=== PATIENT | male | born 1945 | race Caucasian/White ===

== ENCOUNTER → 2016-10-18 | Day surgery (SDC) | payer OTHER ==
[~2016-10-18] MED LIST: ASPIRIN EC 325 MG TAB PO ONE; DIAZEPAM 5 MG TAB ONE; DIAZEPAM 5 MG TAB PO ONE; FAMOTIDINE 20 MG TAB ONE; FAMOTIDINE 20 MG TAB PO ONE; IOPAMIDOL (ISOVUE-370) 150 ML BTL IV ONE; LIDOCAINE 1% 30 ML SDV ONE; MIDAZOLAM 2 MG/2 ML VIAL ONE; NITROGLYCERIN 1,500 MCG/15 ML VIAL MISC ONE; NS 1,000 ML IV ONE; diphenhydrAMINE 25 MG CAP PO ONE; fentaNYL 100 MCG/2 ML INJ ONE
--- NOTE | 2016-10-18 07:56 | CPEKG ---
Heart Rate: 86 RR Interval: 698 P-R Interval: 160 QRSD Interval: 82 QT Interval: 372 QTC Interval: 445 P [place]: 62 QRS [place]: 41 T Wave [place]: 42 EKG Severity - BORDERLINE ECG - EKG Impression: SINUS RHYTHM EKG Impression: PROBABLE LEFT ATRIAL ABNORMALITY EKG Impression: non-specific ST depression laterally. Electronically Signed By: Titi Crisostomo 18-Oct-2016 16:57:09
[2016-10-18 08:30] LABS: % IMMATURE GRANULYOCYTES 0.2 % (0.0-1.1); ABSOLUTE IMMATURE GRANULOCYTES 0.01 10^3/uL (0.00-0.10); ADD DIFF? NO; ADD MORPH? NO; ADD SCAN? NO; ATYPICAL LYMPHOCYTE FLAG 0 (0-99); FRAGMENT RBC FLAG 20 (0-99); HEMOGLOBIN 15.1 g/dL (13.7-17.5); LEFT SHIFT FLG 0 (0-99); LIPEMIA HEMOLYSIS FLAG 90 (0-99); MEAN CELL HEMOGLOBIN 33.6 pg (27.9-34.1); MEAN CELL HEMOGLOBIN CONCENTR. 34.3 g/dL (32.4-36.7); MEAN PLATELET VOLUME 9.7 fL (8.7-11.7); PLATELET CLUMPS FLAG 20 (0-99); PLATELET COUNT 297 10^3/uL (150-400); RED BLOOD CELL COUNT 4.49 10^6/uL (4.40-6.38); RED CELL DISTRIBUTION WIDTH 13.8 % (11.5-15.2)
[2016-10-18 08:41] LABS: ANION GAP 12 mEq/L (8-16); CALCIUM 9.1 mg/dL (8.5-10.4); CARBON DIOXIDE 25 mEq/l (22-31); CHLORIDE 109 mEq/L (97-110); CHOLESTEROL 186 mg/dL (140-220); CHOLESTEROL/HDL RATIO 2.91 RATIO (1.00-4.97); CREATININE 1.2 mg/dL (0.7-1.3); GLOMERULAR FILTRATION RATE 59; GLUCOSE 139 mg/dL (70-100); HIGH DENSITY LIPOPROTEIN 64 mg/dL (40-65); LDL/HDL RATIO 1.41 RATIO (1.00-3.64); LOW DENSITY LIPOPROTEIN 90 mg/dL (80-100); MAGNESIUM 2.2 mg/dL (1.6-2.3); NON-HIGH DENSITY LIPOPROTEIN 122 mg/dL (90-129); POTASSIUM 4.1 mEq/L (3.5-5.2); SODIUM 146 mEq/L (134-144); TRIGLYCERIDE 161 mg/dL (40-150); VERY LOW DENSITY LIPOPROTEINS 32 mg/dL (8-25)
[2016-10-18 08:43] LABS: INR 0.98 (0.83-1.16); PROTIME(PATIENT) 12.9 SEC (12.0-15.0)
--- NOTE | 2016-10-18 14:21 | CPIP ---
[f rep st] INVASIVE CARDIAC PROCEDURE PROCEDURE: Coronary angiography. DIAGNOSIS: Aortic stenosis. INDICATION: The patient is considering having and scheduled to have surgery for his aortic valve rep lacement next Saturday. At this time, he is undergoing elective coronary angiography to rule out the need for coronary artery bypass grafting at the time of surgery. He gave informed consent. He understood the risks and the options and wanted to proceed at this time . His echocardiographic study from September 07, 2016 shows impaired relaxation pattern, severe aortic sc lerosis, mild mitral annular calcification, mild aortic regurgitation, severe aortic stenosis, mild m itral regurgitation, and mild tricuspid regurgitation. Pulmonary artery pressure is estimated at 37. His peak aortic velocity was 4.31 m/sec. The peak aortic gradient was 74. The mean gradient was 38. His echocardiographic study prior to this on 12/13/2015 showed impaired relaxation, normal LV systoli c function once again, and severe aortic sclerosis, severe aortic stenosis, and mild tricuspid regurg itation. The peak gradient then was 71 and mean gradient was 38. Valve area 0.9. DESCRIPTION OF PROCEDURE: The access was gained through the right femoral artery without any complic ations. Coronary angiography followed. ANGIOGRAPHY: RIGHT CORONARY ARTERY: The right coronary artery has no significant disease. The right coronary artery is non dominant. LEFT CORONARY ARTERY: The left main coronary artery is normal. The LAD has what we have estimated to be a 25% to 30% ostia l stenosis. It is very smooth. The circumflex itself has intimal disease as does the obtuse margina l branch. The left circumflex is dominant. The patient's LAD after the ostium has only intimal disease present. There were no attempts made to cross the aortic valve. CONCLUSION: The films were reviewed with the interventional service and we discussed the possibility of doing an IVUS to see if that was a significant stenosis in the proximal LAD with several noninvas lawson cardiologists and the invasive cardiologists we decided that the patient did not need IVUS and th at he could proceed to aortic valve replacement without bypassing that vessel. COMPLICATIONS: None. I have discussed results with his and with the patient. All her questions have been answered. I have also discussed with her that the surgeon may at the time of surgery decide upon actually seein g the vessel and palpating it, etc., that he may want a bypass that the territory of the left anterio r descending artery, and she is aware of that. She is going to be talking as is he to the surgeon on Saturday. /[id number]/MODL
--- NOTE | 2016-10-18 16:37 | US ---
Bilateral Duplex/Doppler Carotid Sonography Clinical Indications: Preoperative evaluation prior to open heart surgery; evaluate for arterial occl usive disease. The patient has had bilateral endarterectomy, on the right in 2005 and the left in 2016. Technique: The cervical portions of the carotid and vertebral arteries were imaged and interrogated b y color and pulsed Doppler. Spectral analysis was performed. Comparison to the previous examination November 25, 2013. Findings: Right Carotid: The common carotid artery, bifurcation, and origins of the internal and external carot id arteries are well imaged. No plaque formation is seen at the level of the carotid bifurcation. Peak ICA systolic velocity; 65 cm/sec. The internal to common carotid artery ratio is calculated at 1.1. Peak ICA diastolic velocity; 18 cm/sec. There is no evidence of flow-limiting stenosis. Left Carotid: The common carotid artery, bifurcation, and origins of the internal and external carot id arteries are well imaged. No plaque formation is seen at the level of the carotid bifurcation. Peak ICA systolic velocity; 74 cm/sec. The internal to common carotid artery ratio is calculated at 1.0. Peak ICA diastolic velocity; 24 cm/sec. There is no evidence of flow-limiting stenosis. Vertebral Arteries: Antegrade flow is shown by pulsed Duplex/Doppler of each vertebral artery. Impression: Status post bilateral endarterectomy with no significant plaque formation or hemodynamica lly significant stenosis. Measurement of carotid stenosis is based on velocity parameters that correlate the residual internal carotid diameter with [place] Symptomatic Carotid Endarterectomy Trial (NASCET) based stenosis levels.
== END | disposition home or self-care (01) ==
LOC: FCATH 07:32
PROVIDERS: ATTEND Internal Medicine
PROC: 4A023N7 Measurement of Cardiac Sampling and Pressure, Left Heart, Percutaneous Approach (ICD-10-PCS; principal; 2016-10-18)
PROC: B2111ZZ Fluoroscopy of Multiple Coronary Arteries using Low Osmolar Contrast (ICD-10-PCS; principal; 2016-10-18)
DX: I35.0 Nonrheumatic aortic (valve) stenosis (principal); E78.5 Hyperlipidemia, unspecified
CPT/HCPCS: J1644; J2250; J3010; Q9967

== ENCOUNTER 2016-10-24 07:14 | Inpatient (IN) | payer OTHER ==
[~2016-10-24 07:14] MED LIST changes: +ADENOSINE 6 MG/2 ML VIAL ONE; +ALBUMIN 5% 250 ML BOTTLE IV ONE; +AMINOCAPROIC ACID 5 GM/20 ML VIAL IV ONE; +AMINOCAPROIC ACID 5 GM/20 ML VIAL ONE; +AMIODARONE HCL 150 MG/3 ML VIAL ONE; -ASPIRIN EC 325 MG TAB PO ONE; +CALCIUM CHLORIDE 1 GM/10 ML INJ ONE; +CITRATE DEXTROSE SOLN 500 ML BAG MISC ONE; -DIAZEPAM 5 MG TAB ONE; -DIAZEPAM 5 MG TAB PO ONE; +DOPamine/DEXTROSE/250 ML BAG IV ONE; -FAMOTIDINE 20 MG TAB ONE; -FAMOTIDINE 20 MG TAB PO ONE; +HEPARIN 10,000 UNIT/10 ML MDV ONE; +INSULIN REGULAR HUMAN 100 UNIT in NS 100 ML IV ONE; -IOPAMIDOL (ISOVUE-370) 150 ML BTL IV ONE; -LIDOCAINE 1% 30 ML SDV ONE; +LIDOCAINE 1% 5 ML SDV ID PRN; +LIDOCAINE 2% 100 MG/5 ML SYR IVP ONE; +MAGNESIUM SULFATE 1 GM/2 ML VIAL ONE; +MANNITOL 25% 12.5 GM/50 ML VIAL IV ONE; -MIDAZOLAM 2 MG/2 ML VIAL ONE; +MILRINONE/DEXTROSE/100 ML BAG IV ONE; +MUPIROCIN 2% 22 GM OINT NS ONE; +NA BICARBONATE 50 MEQ/50 ML VIAL ONE; -NITROGLYCERIN 1,500 MCG/15 ML VIAL MISC ONE; +NOREPINEPHRINE BITARTRATE 16 MG in NS 250 ML IV ONE; +PHENYLEPHRINE HCL 50 MG in NS 250 ML IV ONE; +POTASSIUM Cl (KCl) 20 MEQ/50 ML BAG IV ONE; +PROTAMINE SULFATE 50 MG/5 ML VIAL IVP ONE; +SODIUM BICARBONATE 20 MEQ, LIDOCAINE 1% 10 ML in NORMOSOL-R 1,000 ML MISC ONE; +ceFAZolin 1 GM VIAL ONE; +ceFAZolin 2 GM/DEXTROSE 100 ML IV ONE; -diphenhydrAMINE 25 MG CAP PO ONE; -fentaNYL 100 MCG/2 ML INJ ONE; +methylPREDNISolone SOD SUCC 1 GM/8 ML VIAL ONE; +niCARdipine/NACL 200 ML IV ONE; +niCARdipine/NACL/200 ML BAG IV ONE
[2016-10-24] MEDS ORDERED: SKIN ADHESIVE (DERMABOND) 1 EACH TP ONE (07:32)
[2016-10-24] MEDS ORDERED: PAPAVERINE HCL 60 MG/2 ML SDV ONE (07:33)
[2016-10-24] MEDS ORDERED: VERAPAMIL 5 MG/2 ML VIAL ONE (07:33)
[2016-10-24] MEDS ORDERED: CITRATE DEXTROSE SOLN 500 ML BAG ONE (08:02)
[2016-10-24] MEDS ORDERED: REMIFENTANIL HCL 1 MG VIAL ONE (08:17)
[2016-10-24] MEDS ORDERED: fentaNYL 250 MCG/5 ML INJ ONE (08:17)
[2016-10-24] MEDS ORDERED: morphINE *ANESTHESIA ONLY* 10 MG/ML VIAL ONE (08:17)
[2016-10-24] MEDS ORDERED: PROPOFOL/EMULSION 500 MG/50 ML BOTTLE IV ONE (08:18)
[2016-10-24] MEDS ORDERED: PROPOFOL 200 MG/20 ML VIAL ONE (08:18)
[2016-10-24] MEDS ORDERED: MIDAZOLAM 2 MG/2 ML VIAL ONE (08:19)
[2016-10-24] MEDS ORDERED: ROCURONIUM 100 MG/10 ML VIAL ONE (08:21)
[2016-10-24] MEDS ORDERED: DEXMEDETOMIDINE HCL 400 MCG in NS 100 ML IV SCH (08:30)
[2016-10-24] MEDS ORDERED: LIDOCAINE 2% 100 MG/5 ML SYR IVP ONE (08:31)
[2016-10-24] MEDS ORDERED: INSULIN REGULAR HUMAN 100 UNIT in NS 100 ML IV SCH (12:00)
[2016-10-24] MEDS ORDERED: MAGNESIUM SULF 2 GM/WATER 50 ML BAG IV ONE (12:00)
[2016-10-24] MEDS ORDERED: ALBUMIN 5% 250 ML BOTTLE IV ONE (12:01)
[2016-10-24] MEDS ORDERED: SUGAMMADEX SODIUM 200 MG/2 ML VIAL IVP ONE (12:19)
[2016-10-24] MEDS ORDERED: D50W 25 GM/50 ML SYR IVP PRN (12:30)
[2016-10-24] MEDS ORDERED: METOCLOPRAMIDE 10 MG/2 ML VIAL IVP PRN (12:30)
[2016-10-24] MEDS ORDERED: CEPACOL LOZENGE PO PRN (12:30)
[2016-10-24] MEDS ORDERED: POLYETHYLENE GLYCOL 3350 17 GM PKT PO PRN (12:30)
[2016-10-24] MEDS ORDERED: LACTULOSE 20 GM/30 ML UDCUP PO PRN (12:30)
[2016-10-24] MEDS ORDERED: MAGNESIUM HYDROXIDE 30 ML UDCUP PO PRN (12:30)
[2016-10-24] MEDS ORDERED: MAGNESIUM SULF 2 GM/WATER 50 ML IV ONE (12:30)
[2016-10-24] MEDS ORDERED: POTASSIUM Cl (KCl) 50 ML IV PRN (12:30)
[2016-10-24] MEDS ORDERED: ONDANSETRON 4 MG/2 ML VIAL IVP PRN (12:30)
[2016-10-24] MEDS ORDERED: ONDANSETRON DISINTEGRATING 4 MG TAB PO PRN (12:30)
[2016-10-24] MEDS ORDERED: SODIUM CL NASAL 45 ML BTL EACHNARE PRN (12:30)
[2016-10-24] MEDS ORDERED: NS 1,000 ML IV SCH (12:30)
[2016-10-24] MEDS ORDERED: fentaNYL 100 MCG/2 ML INJ IVP PRN (12:30)
[2016-10-24] MEDS ORDERED: MEPERIDINE 25 MG/ML SYR IVP PRN (12:30)
[2016-10-24] MEDS ORDERED: ACETAMINOPHEN 325 MG TAB PO PRN (12:30)
[2016-10-24] MEDS ORDERED: BISACODYL 10 MG SUPP PR PRN (12:30)
[2016-10-24] MEDS ORDERED: ACETAMINOPHEN 650 MG SUPP PR PRN (12:30)
[2016-10-24] MEDS ORDERED: PANTOPRAZOLE SODIUM 40 MG in NS 100 ML IV ONE (12:30)
--- NOTE | 2016-10-24 13:13 | POSTOPPROG ---
Post Op Note Date of Operation: 10/24/16 Surgeon: Roberto Conteh Scratch Finisher: Alexander Anesthesia: GET(General Endotracheal) Pre-op Diagnosis: , ASHD Procedure: AVR #21 Magna, LIMA_LAD, Atriclip JOHNATHAN Inf/Abcess present in the surg proc area at time of surgery?: No EBL: 50-100 Drains: Other (3 blakes)
[2016-10-24 13:32] LABS: BASE EXCESS -5.1 mEq/L (-2.5-2.5); BICARBONATE 19 mEq/L (22-26); MEASURED OXYGEN SATURATION 98 % (92-95); PCO2 33 mmHg (34-38); PO2 108 mmHg (65-75); TCO2 21 mEq/L (23-27)
[2016-10-24 13:33] LABS: BIPAP YES; EXP PRESSURE 8; INSP PRESSURE 14; O2 CONCENTRATIION 60 % (0-100); P/F RATIO 180 RATIO
[2016-10-24] MEDS: ALBUMIN 5% 250 ML IV PRN (13:36)
--- NOTE | 2016-10-24 13:38 | DX ---
Portable semiupright AP chest October 24, 2016, 1320 hours HISTORY: Open heart surgery. FINDINGS: Right jugular central catheter terminates in the superior vena cava. Sternotomy wires, pros thetic aortic valve, and left atrial appendage clip are present. Multiple surgical clips on the left side suggest coronary artery bypass as well. Three chest tubes are present. Inspiratory depth is poor , with patchy areas of atelectasis, bilaterally. No pneumothorax. IMPRESSION: 1. Patchy bilateral atelectasis. 2. Aortic valve replacement. 3. Clip of left atrial appendage. 4. Coronary artery bypass grafts.
--- NOTE | 2016-10-24 13:39 | CPEKG ---
Heart Rate: 73 RR Interval: 822 P-R Interval: 160 QRSD Interval: 82 QT Interval: 456 QTC Interval: 503 P [place]: 73 QRS [place]: 69 T Wave [place]: 28 EKG Severity - ABNORMAL ECG - EKG Impression: SINUS RHYTHM EKG Impression: PROLONGED QT INTERVAL Electronically Signed By: Jesus Rod 24-Oct-2016 14:17:28
[2016-10-24] MEDS ORDERED: KETOROLAC 30 MG/1 ML SDV IVP ONE (13:47)
[2016-10-24] MEDS ORDERED: fentaNYL 25 MCG PATCH TD ONE (13:48)
--- NOTE | 2016-10-24 14:08 | GCON ---
[f rep st] CONSULTATION INTENSIVE CONSULTATION HISTORY OF PRESENT ILLNESS: Patient examined postoperatively after receiving aortic valve replacemen t as well as a coronary bypass. The patient is a 71-year-old white male with an extensive past medic al history including aortic stenosis, hypertension, gout, chronic renal insufficiency that is mild, a nd non-insulin dependent diabetes. Again, he is examined postoperatively. The patient is currently sedated. He is off mechanical ventilation though is on BiPAP. All history is gleaned from the medic al record. His valvular problems have been followed for a number of years by [facility]. PAST MEDICAL HISTORY: Again, significant for anemia, aortic stenosis, carotid stenosis, hypertension , gout, hyperlipidemia, non-insulin dependent diabetes, chronic renal insufficiency. PAST SURGICAL HISTORY: Carotid endarterectomy, vasectomy, a melanoma excision. MEDICATIONS AT HOME: Include amlodipine, aspirin, hydrochlorothiazide, quinapril, simvastatin. ALLERGIES: To horse serum and tree nuts. SOCIAL HISTORY: Previous heavy smoker, none for 20 years. He drinks 3 alcoholic drinks per day. He is . Has good family support. PHYSICAL EXAM: VITAL SIGNS: Blood pressure 105/58, pulse 75, respiration 19, temp 35.1, oxygen satu ration is 100% on 60% and BiPAP. GENERAL: He is a mildly overweight, 71-year-old white male, who is resting comfortably. No acute distress. HEENT: Eyes are [place], EOMI. Throat shows no erythema or tonsillar hypertrophy. NECK: Supple. There is no cervical adenopathy. HEART: Regular rate and rh ythm with a 2/6 systolic murmur at the left sternal border without radiation. LUNGS: Diminished [place] ath sounds. Mild prolongation of expiratory phase but there is no wheeze. ABDOMEN: Soft, nontender . Bowel sounds present in all 4 quadrants. EXTREMITIES: No clubbing, cyanosis, or edema. LABORATORIES: Sodium 140, potassium 4.0, chloride 108, CO2 is 19, BUN 16, creatinine 0.9, glucose is 164. Hemoglobin 12.2, hematocrit 36. Arterial blood gas: pH 7.38, pCO2 33, pO2 108, bicarb 21, ox ygen saturation 98%. This is on BiPAP. IMPRESSION: 1. Status post aortic valve replacement and coronary bypass graft. 2. History of diabetes. 3. Chronic renal insufficiency. 4. History of gout. 5. History of hyperlipidemia. 6. Hypertension. RECOMMENDATIONS: 1. Adequate pain control. 2. Wean from BiPAP as tolerated. 3. DVT and PE prophylaxis. Holding anticoagulation for now. 4. Stress ulcer prophylaxis. 5. Aggressive blood sugar control. 6. Early ambulation. 7. PT/OT. 8. Adequate nutrition. /[id number]/MODL
[2016-10-24] MEDS: ceFAZolin 2 GM/DEXTROSE 100 ML IV SCH ×2 (14:21→22:20)
--- NOTE | 2016-10-24 14:33 | GOP ---
[f rep st] OPERATIVE REPORT DATE OF OPERATION: 10/24/2016 SURGEON: Roberto Conteh DO MANAGER MARKETING COMMUNICATION: Aaron Munoz PA-C ANESTHESIOLOGIST: Deni Lamas MD. PREOPERATIVE DIAGNOSIS: Aortic stenosis and arteriosclerotic heart disease. POSTOPERATIVE DIAGNOSIS: Aortic stenosis and arteriosclerotic heart disease. PROCEDURE PERFORMED: 1. Aortic valve replacement with a #21 Magna bioprosthesis. 2. Left internal mammary artery to left anterior descending. 3. Ligation of left atrial appendage with AtriClip. FINDINGS: DESCRIPTION OF PROCEDURE: The patient was consented for aortic valve and single-vessel bypass as wel l as ligation of left atrial appendage per our discussion preoperatively. He was brought to the oper ating room, intubated, monitoring lines were placed. He was prepped and draped in sterile classical manner. Time out was confirmed with anesthesia and the rest of the team. Transesophageal echo revea led severe aortic stenosis, good LV function with mild to moderate MR which was known preoperatively and considered more in the mild category with no history of symptoms from that. Sternotomy was perfo rmed. The mammary was harvested. It was a 2 mm vessel with brisk flow. Aorta was soft without plaq ue. He was heparinized, cannulated in the standard fashion. Cardiopulmonary bypass was begun. A Ca rdioplegic arrest was obtained with antegrade cardioplegia, retrograde cardioplegia, topical hypother abdifatah and systemic cooling. Initially, the left atrial appendage was ligated with a 35 mm AtriClip flu sh with the left atrial wall and no evidence of thrombus on echo. I then proceeded with grafting the LAD which was an excellent quality 3 mm vessel in the midsegment with the mammary. It was tacked to the epicardium. We then began rewarming while the aortotomy was performed and a calcified 3 leaflet aortic valve was excised, the annulus was debrided, the LV chamber was irrigated and CO2 was infused throughout. Interrupted 2-0 Tycron pledgeted mattress sutures were placed to a 21 mm Magna valve an d secured without difficulty. We then closed the aortotomy in a 2 layer fashion. The crossclamp wa s then removed with suction on the ascending aortic vent and LV vent. When no further air was seen i n Trendelenburg the LV sump was removed and we intermittently aspirated the LV apex until no further air was identified. The heparin was then reversed with protamine. The cannula was removed and overs ewn. Two ventricular pacing wires, 2 pleural and 1 mediastinal drain were placed. The thymic fat an d pericardium were closed. Chest was closed in the standard fashion. The patient was returned to [facility] post sternotomy, extubated in the operating room, in stable condition. /[id number]/MODL
[2016-10-24 16:46] LABS: BASE EXCESS -3.9 mEq/L (-2.5-2.5); BICARBONATE 20 mEq/L (22-26); MEASURED OXYGEN SATURATION 95 % (92-95); PCO2 32 mmHg (34-38); PO2 73 mmHg (65-75); TCO2 21 mEq/L (23-27)
[2016-10-24] MEDS ORDERED: DOPamine/DEXTROSE/250 ML BAG IV ONE (17:47)
[2016-10-24] MEDS: HYDROCODONE/APAP 5/325 TAB PO PRN ×2 (18:41→20:49)
[2016-10-24] MEDS: MUPIROCIN 2% 22 GM OINT NS SCH (21:36)
[2016-10-24 22:20] LABS: HEMATOCRIT 30.1 % (40.0-51.0); HEMOGLOBIN 10.1 g/dL (13.7-17.5); MEAN CELL HEMOGLOBIN CONCENTR. 33.6 g/dL (32.4-36.7); MEAN CELL VOLUME 101.3 fL (81.5-99.8); RED BLOOD CELL COUNT 2.97 10^6/uL (4.40-6.38); RED CELL DISTRIBUTION WIDTH 13.5 % (11.5-15.2)
[2016-10-25] MEDS: HYDROCODONE/APAP 5/325 TAB PO PRN ×3 (00:16→09:48)
[2016-10-25 04:16] LABS: % IMMATURE GRANULYOCYTES 0.2 % (0.0-1.1); ABSOLUTE IMMATURE GRANULOCYTES 0.02 10^3/uL (0.00-0.10); ADD DIFF? NO; ADD MORPH? NO; ADD SCAN? NO; ATYPICAL LYMPHOCYTE FLAG 0 (0-99); FRAGMENT RBC FLAG 0 (0-99); HEMATOCRIT 29.3 % (40.0-51.0); HEMOGLOBIN 9.8 g/dL (13.7-17.5); LEFT SHIFT FLG 80 (0-99); LIPEMIA HEMOLYSIS FLAG 80 (0-99); MEAN CELL HEMOGLOBIN 33.8 pg (27.9-34.1); MEAN CELL HEMOGLOBIN CONCENTR. 33.4 g/dL (32.4-36.7); MEAN PLATELET VOLUME 10.5 fL (8.7-11.7); PLATELET CLUMPS FLAG 0 (0-99); PLATELET COUNT 133 10^3/uL (150-400); RED CELL DISTRIBUTION WIDTH 13.9 % (11.5-15.2)
[2016-10-25 04:50] LABS: ANION GAP 9 mEq/L (8-16); CALCIUM 7.7 mg/dL (8.5-10.4); CARBON DIOXIDE 23 mEq/l (22-31); CHLORIDE 113 mEq/L (97-110); CREATININE 1.2 mg/dL (0.7-1.3); GLOMERULAR FILTRATION RATE 59; GLUCOSE 99 mg/dL (70-100); POTASSIUM 4.9 mEq/L (3.5-5.2); SODIUM 145 mEq/L (134-144)
[2016-10-25] MEDS ORDERED: HEPARIN 5,000 UNIT/0.5 ML SYR SC SCH (06:00)
[2016-10-25] MEDS: HEPARIN 5,000 UNIT/0.5 ML SYR SC SCH ×3 (06:14→22:50)
[2016-10-25] MEDS: ceFAZolin 2 GM/DEXTROSE 100 ML IV SCH ×3 (06:14→22:50)
[2016-10-25] MEDS: ALBUMIN 5% 250 ML IV PRN (07:20)
--- NOTE | 2016-10-25 08:08 | SOAPPROG ---
SOAP Progress Note Assessment/Plan: POD #1 CABGx1 (MENARD-LAD), AVR #21 Magna bioprosthesis, prophylactic ligation of JOHNATHAN with AtriClip CAD/ s/p CABGx1/AVR - weaned from CPB without need of blood products/pressors/ inotropes/pacing. Extubated prior to transfer to ICU and BiPAP used for transient somnolence. 2 mcg of dopamine started for bradycardia in 50s. - Dopamine off - if BP stable, plan to remove [place] and transfer to PCU - d/c FC and CTs to bulb suction - OOB/ambulation - BB when appropriate, ASA now, statin when taking adequate PO - Heparin SQ for DVT prophylaxis 10/25/16 08:13 Subjective: Denies SOB. Minimal chest pain right chest. Otherwise feels well. Objective: Vital Signs Temp Pulse Resp BP Pulse Ox 36.8 C 78 18 120/59 L 95 10/25/16 07:00 10/25/16 07:00 10/25/16 07:00 10/25/16 07:00 10/25/16 07:00 Laboratory Results 10/25/16 04:00 10/25/16 04:00 10/24/16 10/25/16 10/26/16 05:59 05:59 05:59 Intake Total 1510 Output Total 1600 Balance -90 Physical Exam - Physical Exam General Appearance: WD/WN, alert, no apparent distress EENT: No scleral icterus (R), No scleral icterus (L) Neck: normal inspection Respiratory: lungs clear, No respiratory distress, No crackles, No rhonchi, No wheezing Cardiac/Chest: regular rate, rhythm, other (Sternotomy C/D/I) Abdomen: non-tender, soft Skin: normal color, warm/dry Extremities: No pedal edema, No swelling Neuro/Psych: alert, normal mood/affect, oriented x 3 ICD10 Worksheet Patient Problems: Problems Problem Status Diagnosed S/P AVR (aortic valve replacement) Acute S/P CABG x 1 Acute Aortic valve stenosis with insufficiency Chronic CAD in [place] artery Chronic History of bilateral carotid endarterectomy Chronic PVD (pulmonary valve disease) Chronic
[2016-10-25] MEDS ORDERED: ASPIRIN 81 MG CHEWABLE TAB TUBE PRN (09:00)
[2016-10-25] MEDS: PANTOPRAZOLE SODIUM 40 MG TAB PO SCH (09:48)
[2016-10-25] MEDS: MUPIROCIN 2% 22 GM OINT NS SCH ×2 (09:48→22:52)
[2016-10-25] MEDS: ASPIRIN 81 MG CHEWABLE TAB PO SCH (09:48)
--- NOTE | 2016-10-25 09:49 | PDINTPN ---
Paper Control Clerk Progress Note Assessment/Plan: Assessment/Plan: * S/P AVR and CABG * Pain-okay * Resp-stable off vent * CRI-by history * DM-BS okay * Hypotension-off pressors * PT/OT * Ambulation Subjective: Comfortable. Pain okay Objective: Vital Signs Temp Pulse Resp BP Pulse Ox 36.9 C 78 12 121/55 H 93 10/25/16 08:00 10/25/16 08:00 10/25/16 08:00 10/25/16 08:00 10/25/16 08:00 Laboratory Results 10/25/16 04:00 10/25/16 04:00 10/24/16 10/25/16 10/26/16 05:59 05:59 05:59 Intake Total 1510 250 Output Total 1600 Balance -90 250 Physical Exam - Physical Exam General Appearance: alert, no apparent distress EENT: PERRL/EOMI, normal ENT inspection, pharynx normal Neck: non-tender, full range of motion, supple, normal inspection Respiratory: decreased breath sounds, No respiratory distress, No wheezing Cardiac/Chest: normal peripheral pulses, regular rate, rhythm, systolic murmur Peripheral Pulses: 2+: carotid (R), carotid (L), femoral (R), femoral (L), dorsalis-pedis (R), dorsalis-pedis (L) Abdomen: normal bowel sounds, non-tender, soft Male Genitalia: deferred Rectal: deferred Skin: normal color, warm/dry Extremities: normal range of motion, non-tender, normal inspection, normal capillary refill Neuro/Psych: no motor/sensory deficits, alert, normal mood/affect, oriented x 3 ICD10 Worksheet Patient Problems: Problems Problem Status Diagnosed S/P AVR (aortic valve replacement) Acute S/P CABG x 1 Acute Aortic valve stenosis with insufficiency Chronic CAD in [place] artery Chronic History of bilateral carotid endarterectomy Chronic PVD (pulmonary valve disease) Chronic
--- NOTE | 2016-10-25 10:11 | DX ---
Portable Chest at 622 hours History: ICU patient, recent open heart surgery. Comparison: Portable chest October 24, 2016, CT chest October 23, 2016.. Findings: Right internal jugular central venous catheter tip is at the cavoatrial junction. Mediastin al drain and chest tubes are in stable position. There is no visible pneumothorax. Lung volumes are l ow. Linear atelectasis in the left midlung is stable. There is mild basilar atelectasis. Widening of the cardiomediastinal silhouette is slightly increased, likely exaggerated by low lung volumes. Artif icial valve and left atrial appendage clip again noted. The bones are stable. Impression: 1. Slight increase in size of the cardiomediastinal silhouette, likely related to decreased lung volu mes. 2. Lines and tubes in stable position. 3. Basilar and left perihilar atelectasis.
[2016-10-25] MEDS: traMADol 50 MG TAB PO PRN ×2 (22:50→23:58)
[2016-10-25] MEDS: SENNOSIDES/DOCUSATE SODIUM TAB PO SCH (22:52)
[2016-10-26] MEDS: HYDROCODONE/APAP 5/325 TAB PO PRN ×3 (05:43→22:25)
[2016-10-26] MEDS: HEPARIN 5,000 UNIT/0.5 ML SYR SC SCH ×3 (05:44→22:26)
--- NOTE | 2016-10-26 08:58 | SOAPPROG ---
SOAP Progress Note Assessment/Plan: Assessment: POD#2 AVR #21 Magna bioprosthesis, CABGx1 (MENARD-LAD), prophylactic ligation of JOHNATHAN with AtriClip Severe - s/p tissue AVR. Extubated in the OR. Stable early postop course. Bradycardia resolved. Upward BP creep. Antithrombotic prophylaxis with ASA alone so long as rhythm stable. AF prophylaxis w BB as tolerated. Incidental single vessel CAD w preserved LV systolic fx - s/p CABG1 with arterial graft. Secondary prevention w ASA, BB as tolerated, and statin. Acute expected blood loss anemia - Stable. No blood products transfused. VTE prophylaxis w SQ hep. DM2 w CKD2 - Diet controlled w preop A1c of 6.1%. Baseline Cr 1.2. Both stable. No significant postop hyperglycemia. ACEI prior to discharge if sufficient BP. Plan: Chest tubes and TCPW removed. Start metoprolol 12.5 mg BID w conservative hold parameters. Start daily diuresis, Lasix 40 mg BID today. Start statin on formulary. Inc activity and pulm toilet. Dispo - Anticipate home within 48hrs. 10/26/16 08:55 Subjective: A bit sleep deprived, o/w ok. Tolerating light activity and solids. Adequate analgesia. Objective: Vital Signs Temp Pulse Resp BP Pulse Ox 36.4 C 83 14 141/74 H 90 L 10/26/16 04:00 10/26/16 04:00 10/26/16 04:00 10/26/16 04:00 10/26/16 04:00 Laboratory Results 10/25/16 04:00 10/25/16 04:00 10/25/16 10/26/16 10/27/16 05:59 05:59 05:59 Intake Total 1510 1550 Output Total 1600 1150 Balance -90 400 Holding heart rates > 75. BP on the rise. CTOP at removal criteria. + fluid balance, +3 kg overall. Morning labs pending. Physical Exam - Physical Exam General Appearance: alert, no apparent distress Respiratory: lungs clear, other (blakes x 3 to bulb suction, serosang drainage. All drains removed without incident) Cardiac/Chest: regular rate, rhythm, other (Sternum grossly stable. Sternotomy CDI. Vwires removed without difficulty.) Abdomen: normal bowel sounds, non-tender, soft Skin: warm/dry Extremities: swelling (1+ gen) ICD10 Worksheet Patient Problems: Problems Problem Status Diagnosed S/P AVR (aortic valve replacement) Acute S/P CABG x 1 Acute Aortic valve stenosis with insufficiency Chronic CAD in [place] artery Chronic History of bilateral carotid endarterectomy Chronic PVD (pulmonary valve disease) Chronic
[2016-10-26] MEDS ORDERED: METOPROLOL TARTRATE 25 MG TAB PO SCH (09:00)
[2016-10-26 09:48] LABS: % IMMATURE GRANULYOCYTES 0.8 % (0.0-1.1); ABSOLUTE IMMATURE GRANULOCYTES 0.11 10^3/uL (0.00-0.10); ADD DIFF? NO; ATYPICAL LYMPHOCYTE FLAG 0 (0-99); FRAGMENT RBC FLAG 0 (0-99); HEMATOCRIT 28.2 % (40.0-51.0); HEMOGLOBIN 9.4 g/dL (13.7-17.5); MEAN CELL HEMOGLOBIN 35.1 pg (27.9-34.1); MEAN CELL HEMOGLOBIN CONCENTR. 33.3 g/dL (32.4-36.7); MEAN CELL VOLUME 105.2 fL (81.5-99.8); MEAN PLATELET VOLUME 10.6 fL (8.7-11.7); PLATELET COUNT 114 10^3/uL (150-400); RED BLOOD CELL COUNT 2.68 10^6/uL (4.40-6.38); RED CELL DISTRIBUTION WIDTH 13.9 % (11.5-15.2)
[2016-10-26 09:49] LABS: ADD MORPH? NO; ADD SCAN? YES; LIPEMIA HEMOLYSIS FLAG 80 (0-99); PLATELET CLUMPS FLAG 10 (0-99)
[2016-10-26 09:53] LABS: LEFT SHIFT FLG 190 (0-99)
[2016-10-26] MEDS: SENNOSIDES/DOCUSATE SODIUM TAB PO SCH ×2 (09:53→22:26)
[2016-10-26] MEDS: PANTOPRAZOLE SODIUM 40 MG TAB PO SCH (09:53)
[2016-10-26] MEDS: FUROSEMIDE 40 MG TAB PO SCH ×2 (09:53→14:38)
[2016-10-26] MEDS: ASPIRIN 81 MG CHEWABLE TAB PO SCH (09:53)
[2016-10-26] MEDS: POTASSIUM CL 20 MEQ TAB PO SCH ×2 (09:54→22:25)
[2016-10-26] MEDS: MUPIROCIN 2% 22 GM OINT NS SCH (09:59)
[2016-10-26 10:08] LABS: ANION GAP 9 mEq/L (8-16); CALCIUM 7.7 mg/dL (8.5-10.4); CARBON DIOXIDE 27 mEq/l (22-31); CHLORIDE 105 mEq/L (97-110); CREATININE 1.2 mg/dL (0.7-1.3); GLOMERULAR FILTRATION RATE 59; GLUCOSE 175 mg/dL (70-100); POTASSIUM 4.9 mEq/L (3.5-5.2); SODIUM 141 mEq/L (134-144)
[2016-10-26 10:29] LABS: SCAN POSITIVE
[2016-10-26 10:50] LABS: PLATELET ESTIMATE DECREASED (ADEQ)
[2016-10-26 10:52] LABS: MACROCYTES 1+
--- NOTE | 2016-10-26 14:56 | ECHO ---
[id number] + + [address] : : [place] [address] : : [phone] + + Adult Echocardiographic Report + + :Name: RAYO CORNELL LStudy Date: 10/26/2016 02:25 PM : : Hospital Admission Number: [id number] Loc ation: 205: :: 1945 Gender: Male Height: 70 in : :Age: 71 yrs Race: WH Weight: 171 lb : :Reason For Study: Eval Aortic Valve and LV Fx : : BSA: 2.0 me ters2 : :History: S/P #21 Lopez Magna Bioprosthesis, CABG x 1 : + + MMode/2D Measurements & Calculations IVSd: 0.83 cm LVIDd: 4.2 cm FS: 32.6 % Ao root diam: 2.4 cm LVPWd: 0.96 cm LVIDs: 2.8 cm EDV(Teich): 78.0 ml ESV(Teich): 30.2 ml EF(Teich): 61.4 % LVOT diam: 2.1 cm LVOT area: 3.5 cm2 Normal Measurement Values: + + :LVIDd (3.5-5.7cm) IVSd (0.6-1.1cm) LVPWd (0.6-1.1cm) Aortic Root (2.0-3.7cm)Left Atrium (1.5-4.0cm): :LV Vol(d) (76-115ml) LV Vol(s) (29-48ml) Ejec Fraction (50-65%)PV Bala (0.6- 1.2m/s) TV Bala (0.4-1.0m/s) : :MV E Bala (0.8-1.0m/s)MV A Bala (0.3-1.0m/s)LVOT Bala (0.7-1.2m/s) Asc Ao Bala ( 0.9-1.8m/s) : + + Doppler Measurements & Calculations MV E max bala: Ao V2 max: LV V1 max: SV(LVOT): 98.7 cm/sec 206.3 cm/sec 83.4 cm/sec 71.3 ml MV A max bala: Ao max P.0 mmHg LV V1 max P.8 cm/sec Ao mean P.4 mmHg 2.8 mmHg MV E/A: 1.1 Ao V2 mean: LV V1 mean P.2 cm/sec 1.7 mmHg Ao V2 VTI: 43.2 cm LV V1 mean: 57.9 cm/sec GUY(I,D): 1.7 cm2 LV V1 VTI: 20.6 cm GUY(V,D): 1.4 cm2 PA V2 max: PI end-d bala: 71.9 cm/sec 143.9 cm/sec PA max P.1 mmHg Left Ventricle The left ventricle is normal in size. There is normal left ventricular wall thickness. The left ventricular ejection fraction is normal. There is Doppler evidence for diastolic dysfunction. Ejection Fraction = 62%. No regional wall motion abnormalities noted. Right Ventricle The right ventricle is normal in size and function. Atria The left atrial size is normal. Right atrial size is normal. Mitral Valve There is mild mitral annular calcification. There is no mitral valve stenosis. There is trace mitral regurgitation. Tricuspid Valve Normal tricuspid valve. No tricuspid regurgitation. Aortic Valve There is a #21 Lopez Magna bioprothetic valve. The Ao mean PG is 10.4 mmHg with a Ao V2 max 2.0 m/sec. There is no aortic stenosis. There is no aortic insufficiency. Pulmonic Valve The pulmonic valve is normal in structure and function. Great Vessels The aortic root is normal size. Pericardium/Pleural Trivial posterior pericardial effusion. Conclusion The left ventricular ejection fraction is normal. There is Doppler evidence for diastolic dysfunction. Ejection Fraction = 62%. No regional wall motion abnormalities noted. The right ventricle is normal in size and function. There is trace mitral regurgitation. There is a #21 Lopez Magna bioprothetic valve. The Ao mean PG is 10.4 mmHg with a Ao V2 max 2.0 m/sec. Trivial posterior pericardial effusion Final Reading Physician: Praful Palacio signed on 10/26/2016 02:55 PM Ordering Physician: Aaron Munoz Performed By: Murphy Quevedo, KATHYCS
[2016-10-26] MEDS: ATORVASTATIN CALCIUM 10 MG TAB PO SCH (22:25)
[2016-10-26] MEDS: METOPROLOL TARTRATE 25 MG TAB PO SCH (22:25)
[2016-10-27] MEDS: HEPARIN 5,000 UNIT/0.5 ML SYR SC SCH ×3 (05:09→20:26)
[2016-10-27] MEDS: PANTOPRAZOLE SODIUM 40 MG TAB PO SCH (08:25)
[2016-10-27] MEDS: SENNOSIDES/DOCUSATE SODIUM TAB PO SCH ×2 (08:26→20:25)
[2016-10-27] MEDS: ASPIRIN 81 MG CHEWABLE TAB PO SCH (08:26)
[2016-10-27] MEDS: METOPROLOL TARTRATE 25 MG TAB PO SCH (08:26)
--- NOTE | 2016-10-27 08:48 | SOAPPROG ---
SOAP Progress Note Assessment/Plan: POD #3 CABGx1 (MENARD-LAD), AVR #21 Magna bioprosthesis, prophylactic ligation of JOHNATHAN with AtriClip CAD/ s/p CABGx1/AVR - weaned from CPB without need of blood products/pressors/ inotropes/pacing. Extubated prior to transfer to ICU and BiPAP used for transient somnolence. 2 mcg of dopamine started for bradycardia in 50s. ECHO on 10/26 showed normally function aortic valve, trace MR, EF 62%. - BB/ASA/Statin - Heparin SQ for DVT prophylaxis DM2 - Well-controlled by diet Disposition - Home tomorrow without services Subjective: Feels well. Denies CP/SOB. Good appetite. Objective: Vital Signs Temp Pulse Resp BP Pulse Ox 37.2 C 86 16 159/80 H 92 10/27/16 07:25 10/27/16 07:25 10/27/16 07:25 10/27/16 07:25 10/27/16 07:25 Laboratory Results 10/26/16 09:35 10/26/16 09:35 10/26/16 10/27/16 10/28/16 05:59 05:59 05:59 Intake Total 1550 300 Output Total 1150 3690 Balance 400 -3390 - Pending Discharge Pending Discharge Within 24 Hours: Yes Pending Discharge Date: 10/28/16 Pending Discharge Time: 11:00 Physical Exam - Physical Exam General Appearance: WD/WN, alert, no apparent distress EENT: No scleral icterus (R), No scleral icterus (L) Neck: normal inspection Respiratory: chest non-tender, lungs clear, normal breath sounds Cardiac/Chest: regular rate, rhythm, No systolic murmur Abdomen: normal bowel sounds, non-tender, soft, No distended Skin: normal color, warm/dry Extremities: No pedal edema, No swelling Neuro/Psych: no motor/sensory deficits, alert, normal mood/affect, oriented x 3 ICD10 Worksheet Patient Problems: Problems Problem Status Diagnosed S/P AVR (aortic valve replacement) Acute S/P CABG x 1 Acute Aortic valve stenosis with insufficiency Chronic CAD in [place] artery Chronic History of bilateral carotid endarterectomy Chronic PVD (pulmonary valve disease) Chronic
[2016-10-27] MEDS ORDERED: METOPROLOL TARTRATE 25 MG TAB PO ONE (09:40)
[2016-10-27] MEDS: ATORVASTATIN CALCIUM 10 MG TAB PO SCH (20:25)
[2016-10-27] MEDS: METOPROLOL TARTRATE 50 MG TAB PO SCH (20:25)
[2016-10-28] MEDS: HEPARIN 5,000 UNIT/0.5 ML SYR SC SCH (05:37)
[2016-10-28] MEDS: ASPIRIN 81 MG CHEWABLE TAB PO SCH (07:33)
[2016-10-28] MEDS: METOPROLOL TARTRATE 50 MG TAB PO SCH (07:33)
[2016-10-28] MEDS: SENNOSIDES/DOCUSATE SODIUM TAB PO SCH ×2 (07:33→20:25)
[2016-10-28] MEDS: PANTOPRAZOLE SODIUM 40 MG TAB PO SCH (07:34)
[2016-10-28] MEDS ORDERED: AMIODARONE HCL 100 ML IV ONE (07:43)
[2016-10-28] MEDS ORDERED: AMIODARONE HCL 540 MG in D5W 300 ML IV ONE ×2 (07:43→14:00)
[2016-10-28] MEDS ORDERED: AMIODARONE HCL 200 ML IV ONE (07:43)
[2016-10-28] MEDS ORDERED: METOPROLOL TARTRATE 25 MG TAB PO ONE (07:44)
[2016-10-28] MEDS: LIDOCAINE 5% 1 EA PATCH TD SCH (08:20)
--- NOTE | 2016-10-28 09:02 | SOAPPROG ---
SOAP Progress Note Assessment/Plan: POD #4 CABGx1 (MENARD-LAD), AVR #21 Magna bioprosthesis, prophylactic ligation of JOHNATHAN with AtriClip CAD/ s/p CABGx1/AVR - BB/ASA/Statin - OOB/Ambulation - ECHO on 10/26 showed normally function aortic valve, trace MR, EF 62% - Eliquis for DVT prophylaxis Post-op atrial fibrillation - Amio/BB - CHADS2-VASC score of 4 - will start Eliquis 2.5 BID for thromboprophylaxis DM2 - Well-controlled by diet Right shoulder pain, worsening - Pt states onset approximately 2 days prior to operation. Worse this morning with inability to abduct without pain. No sings of trauma. No signs/symptoms of acute CVA - Pain mgmt/PT - Ortho eval 10/29 Disposition - Plan for home Saturday/Saturday10/28/16 10:03 Subjective: Pt c/o right shoulder pain and palpitations earlier this AM. Denies SOB. Objective: Vital Signs Temp Pulse Resp BP Pulse Ox 36.6 C 77 21 H 128/73 H 94 10/28/16 07:16 10/28/16 08:37 10/28/16 07:16 10/28/16 08:37 10/28/16 07:16 Laboratory Results 10/26/16 09:35 10/26/16 09:35 10/27/16 10/28/16 10/29/16 05:59 05:59 05:59 Intake Total 300 670 Output Total 3690 2075 Balance -3390 -1405 Physical Exam - Physical Exam General Appearance: WD/WN, alert, no apparent distress EENT: No scleral icterus (R), No scleral icterus (L) Neck: normal inspection Respiratory: lungs clear, normal breath sounds, No respiratory distress Cardiac/Chest: regular rate, rhythm, irregularly irregular Abdomen: non-tender, soft, No distended Skin: normal color, warm/dry Extremities: other (right shoulder TTP. Limited ROM secondary to pain.), No normal range of motion (Right shoulder), No pedal edema, No inflammation, No swelling Neuro/Psych: no motor/sensory deficits, alert, normal mood/affect, oriented x 3 , motor weakness (Right shoulder secondary to pain), No aphasia, No facial droop , No sensory deficit, No cognition abnormalities, No speech abnormalities ICD10 Worksheet Patient Problems: Problems Problem Status Diagnosed S/P AVR (aortic valve replacement) Acute S/P CABG x 1 Acute Aortic valve stenosis with insufficiency Chronic CAD in [place] artery Chronic History of bilateral carotid endarterectomy Chronic PVD (pulmonary valve disease) Chronic
[2016-10-28] MEDS: HYDROCODONE/APAP 5/325 TAB PO PRN (09:36)
[2016-10-28] MEDS ORDERED: OXYCODONE/APAP 5/325 TAB PO PRN (10:52)
[2016-10-28 12:21] LABS: ANION GAP 10 mEq/L (8-16); CALCIUM 7.9 mg/dL (8.5-10.4); CARBON DIOXIDE 30 mEq/l (22-31); CHLORIDE 100 mEq/L (97-110); GLOMERULAR FILTRATION RATE > 60; GLUCOSE 211 mg/dL (70-100); POTASSIUM 3.4 mEq/L (3.5-5.2); SODIUM 140 mEq/L (134-144)
[2016-10-28] MEDS: APIXABAN 2.5 MG TAB PO SCH ×2 (12:24→20:26)
[2016-10-28] MEDS: POTASSIUM CL 20 MEQ TAB PO SCH ×2 (14:22→17:08)
[2016-10-28] MEDS: OXYCODONE/APAP 5/325 TAB PO PRN ×2 (17:08→20:25)
[2016-10-28] MEDS: ATORVASTATIN CALCIUM 10 MG TAB PO SCH (20:26)
[2016-10-28] MEDS: traMADol 50 MG TAB PO PRN (20:26)
[2016-10-28] MEDS: PATCH REMOVAL 1 EA PATCH TD SCH (20:30)
[2016-10-28] MEDS ORDERED: METOPROLOL TARTRATE 50 MG TAB PO SCH (21:00)
[2016-10-29] MEDS: traMADol 50 MG TAB PO PRN ×2 (05:55→15:48)
[2016-10-29] MEDS: OXYCODONE/APAP 5/325 TAB PO PRN (05:56)
[2016-10-29 06:14] LABS: HEMATOCRIT 27.4 % (40.0-51.0); HEMOGLOBIN 9.2 g/dL (13.7-17.5); MEAN CELL HEMOGLOBIN 34.3 pg (27.9-34.1); MEAN CELL HEMOGLOBIN CONCENTR. 33.6 g/dL (32.4-36.7); MEAN CELL VOLUME 102.2 fL (81.5-99.8); RED BLOOD CELL COUNT 2.68 10^6/uL (4.40-6.38); RED CELL DISTRIBUTION WIDTH 13.7 % (11.5-15.2)
[2016-10-29 06:36] LABS: POTASSIUM 3.8 mEq/L (3.5-5.2)
[2016-10-29] MEDS ORDERED: POTASSIUM CL 20 MEQ TAB PO ONE (08:00)
[2016-10-29] MEDS: APIXABAN 2.5 MG TAB PO SCH ×2 (08:52→19:40)
[2016-10-29] MEDS: ASPIRIN 81 MG CHEWABLE TAB PO SCH (08:52)
[2016-10-29] MEDS: AMIODARONE HCL 200 MG TAB PO SCH (08:52)
[2016-10-29] MEDS: SENNOSIDES/DOCUSATE SODIUM TAB PO SCH (08:53)
[2016-10-29] MEDS: METOPROLOL TARTRATE 50 MG TAB PO SCH ×2 (08:53→19:40)
[2016-10-29] MEDS: LIDOCAINE 5% 1 EA PATCH TD SCH (08:56)
[2016-10-29] MEDS ORDERED: AMIODARONE HCL 200 MG TAB PO SCH (09:00)
--- NOTE | 2016-10-29 09:03 | SOAPPROG ---
SOAP Progress Note Assessment/Plan: Assessment: POD#5 AVR #21 Magna bioprosthesis, CABGx1 (MENARD-LAD), prophylactic ligation of JOHNATHAN with AtriClip Severe - s/p tissue AVR. Extubated in the OR. Hemodynamically stable early postop course. Nl postop echo. Tubes and wires out. Antithrombotic prophylaxis as per rhythm. Postoperative AF - Single episode converting to SR on Amio and escalating doses of metoprolol. Rate well controlled last 24hrs. Now intermittently bradycardic. Antithrombotic prophylaxis with low dose Eliquis for [id number] score of 4. Incidental single vessel CAD w preserved LV systolic fx - s/p CABG1 with arterial graft. Secondary prevention w baby ASA, statin, and BB as tolerated. Acute expected blood loss anemia - Stable. No blood products transfused. VTE prophylaxis as per rhythm. DM2 w CKD2 - Diet controlled w preop A1c of 6.1%. Baseline Cr 1.2. Both stable. No significant postop hyperglycemia. Resumption of ACEI as allowed by BP. Right shoulder pain - Pre-exisiting discomfort, worsening over last 48hr. Unable to abduct without pain. No numbness or radicular pain. Use of NSAID contraindicated by CABG. Satisfactory analgesia with percocet. Ortho to see. Outpt f/u as per Dr Lou's recs. Plan: Reduce metoprolol to 50 mg BID. Reduce amiodarone to 200 mg daily. Replete K. 3 view shoulder series as per ortho. Wean O2. Dispo - Home this afternoon. 10/29/16 08:59 Subjective: Doing ok. Adequate analgesia on narcs but feels tired and a little forgetful. Walking independently, comfortable on flat surface, admitting to some listing on the stairs. Guarding of rt arm unchanged. Neither he or his interested in home services or inpt rehab. Objective: Vital Signs Temp Pulse Resp BP Pulse Ox 36.5 C 64 16 137/73 H 95 10/29/16 07:24 10/29/16 07:24 10/29/16 07:24 10/29/16 07:24 10/29/16 07:24 Laboratory Results 10/29/16 05:55 10/29/16 05:55 10/28/16 10/29/16 10/30/16 05:59 05:59 05:59 Intake Total 670 1330 200.4 Output Total 2075 100 100 Balance -1405 1230 100.4 Holding SR x 24h. HR dipping into upper 50s and low 60s. BP ok. Borderline suppl O2 req. I/Os balanced. Wt 2 kg below preop. Labs stable. - Pending Discharge Pending Discharge Within 24 Hours: Yes Pending Discharge Date: 10/30/16 Pending Discharge Time: 11:00 Physical Exam - Physical Exam General Appearance: alert, no apparent distress Respiratory: lungs clear Cardiac/Chest: regular rate, rhythm, other (Sternum grossly stable. Sternotomy and CT sites CDI) Abdomen: non-tender, soft Skin: warm/dry Extremities: other (no visible edema. Rt shoulder pt tender near bicipital groove. Hand CSM and administrative services director ok.) Neuro/Psych: other (flat affect) ICD10 Worksheet Patient Problems: Problems Problem Status Diagnosed Atrial fibrillation with rapid ventricular response Acute S/P AVR (aortic valve replacement) Acute S/P CABG x 1 Acute Aortic valve stenosis with insufficiency Chronic CAD in [place] artery Chronic History of bilateral carotid endarterectomy Chronic PVD (pulmonary valve disease) Chronic
--- NOTE | 2016-10-29 10:55 | GCON ---
[f rep st] [facility] CONSULT CHIEF COMPLAINT: Right shoulder pain and right elbow pain. DIAGNOSIS: Right shoulder pain, right elbow pain. ASSOCIATED DIAGNOSES: 1. Status post AVR and coronary bypass. 2. Gout. 3. Chronic renal insufficiency. 4. Hypertension. 5. Aortic stenosis. 6. Xil-[id number]-etlbjmfoe diabetes. REASON FOR CONSULT: Right shoulder pain, preoperative. BRIEF HISTORY OF PRESENT ILLNESS: Please see details of admitting H and P. A 71-year-old male who just recently received aortic valve replacement and coronary bypass by Dr. Conteh. He is on his way to cardiac rehab, and is complaining of right shoulder pain when manipulated and mobilized. He complains of pain in the right shoulder approximately for a year, that was mitigated by ibuprofen, but since he cannot take ibuprofen, due to his recent surgery, he is having more pain. He states that about 2 days prior to surgery, he had some pain over the top of his shoulder. Now postop, his pain is in his shoulder and sometimes radiating into his right elbow. PHYSICAL EXAMINATION: GENERAL: Pertinent orthopedic examination reveals a well -appearing gentleman. He has multiple lines and neck ports. RIGHT SHOULDER: Passive range of motion to 100 degrees of forward flexion, abduction. Active range of motion to 90 degrees abduction, forward flexion, with pain. He has intact deltoid musculature in activation. He is sensate to light touch in the C4 to T1 distribution. He is tender over his right coracoid, right biceps. He is able to actively flex his elbow to get his hand to his mouth. He has intact interossei, exercise instructor, and finger flexion, intact wrist extension, wrist flexion. He does have a slightly swollen PIP that is currently taped from an old injury. There is no evidence of cellulitis over the right shoulder. There is a Lidoderm patch over the posterolateral shoulder. DIAGNOSTICS STUDIES: No imaging as of yet. X-rays, 3-view right shoulder is pending. IMPRESSION/RECOMMENDATION: Right shoulder pain. Nothing acute at this point. Could be impingement, rotator cuff tendinitis, biceps tendinitis, may be gout related, may be arthritis related. I would like to get further diagnostic imaging to help with the diagnosis. He has a 3-view shoulder pending today, and I will look at that. As far as an MRI, which I think might be reasonable, if he can get one, can be done as an outpatient. He should follow up in my clinic in 2 weeks for right shoulder and right elbow evaluation after he gets into his cardiac rehab. Half hour at the bedside. /[id number]/MODL MTDD
--- NOTE | 2016-10-29 14:16 | PDIAF ---
- Diagnosis Diagnosis: /incidental CAD s/p tissue AVR/CABG, rt shoulder arthritis off NSAID Code Status: Full Code - Medication Management Discharge Medications: Medications to Continue on Transfer Simvastatin [Zocor 20 mg] 20 mg PO DAILY18 10/22/14 [Last Taken 10/23/16] Herbals/Supplements -Info Only 1 ea PO DAILY #0 03/30/16 [Last Taken 10/23/16] Acetaminophen [Tylenol 325mg (*)] 325 - 650 mg PO Q4HRS PRN #0 tab 10/29/16 [ Last Taken Unknown] Amiodarone HCl [Pacerone (*)] 200 mg PO DAILY #30 tab 10/29/16 [Last Taken Unknown] Apixaban [Eliquis] 2.5 mg PO BID #60 tab 10/29/16 [Last Taken Unknown] Aspirin [Aspirin 81mg (*)] 81 mg PO DAILY #0 tab.chew 10/29/16 [Last Taken Unknown] Lidocaine 5% [Lidoderm 5% Patch (*)] 1 ea TD DAILY #14 patch 10/29/16 [Last Taken Unknown] Metoprolol Tartrate [Lopressor 50 mg (*)] 50 mg PO BID #60 tab 10/29/16 [Last Taken Unknown] traMADol [Ultram 50 mg (*)] 50 - 100 mg PO Q4HRS PRN #40 tab 10/29/16 [Last Taken Unknown] Discharge Medications: Refer to the Discharge Home Medication list for PRN reason. PICC Care - Routine: N/A - Orders Services needed: Registered Nurse (Please call [facility] (CV surgical scheduler Corazon Marie) for overnight weight gain > 2 lbs, worsening low leg swelling, resting heart rate < 55 or > 120, SBP consistently < 90 or > 140, or suppl O2 req > 4lpm.), Physical Therapy (please confirm with orthopedist Dr Lou [phone] appropriate rt shoulder rehab) Oxygen: prn SpO2 < 90% +/- activity Diet Recommendation: ADA 2000 consistent carb Diet Texture: Regular Texture Diet Weigh Patient: daily Falcon: Not applicable Wound Care Instructions: -daily soap and water. -avoid ointments until all scabs off. -no underwater immersion until all scabs off Activity/Weight Bearing Restrictions: -sternal precautions x 3 more weeks. - RUE ROM per ortho Equipment: front wheel walker, portable O2 - Labs/Radiology Imaging Orders: CXR prior to surgical appointment - Follow Up Care Current Providers and Referrals: Chuy Polo MD [Primary Care Provider] - Roberto Conteh DO [Doctor of Osteopathy] - 11/06/16 10:30 am Moises Beckham MD [Medical Doctor] - Bernard Lou MD [Medical Doctor] - follow up in 10 days
--- NOTE | 2016-10-29 14:49 | DX ---
Right shoulder - 3 views Indication: Discomfort and decreasing range of motion. Comparison: Portable chest dated October 25, 2016 Findings: The bones are anatomically aligned. No fracture or bone lesion. Minimal osteoarthritis invo lve the glenohumeral and acromioclavicular joints. The acromioclavicular and coracoclavicular interva ls are within normal limit. A right IJ catheter is present with the tip in the superior vena cava. Brown rgical clips are present in the lower right neck. Right lung apex is clear. Impression: Minimal osteoarthritis. No fracture or bone lesion.
--- NOTE | 2016-10-29 17:29 | PDDCSUM ---
Discharge Summary Discharge Summary: DATE OF ADMISSION: 10/24/16 DATE OF DISCHARGE: 10/30/16 DISPOSITION: Home with home healthcare, RN and PT PRINCIPAL ADMISSION DIAGNOSES: 1. Severe aortic valve stenosis with mild aortic valve insufficiency. 2. Single vessel coronary artery disease. PRINCIPAL DISCHARGE DIAGNOSES: 1. s/p aortic valve replacement with a bioprosthesis. 2. s/p coronary artery bypass grafting x 1. 3. s/p prophylactic ligation of the left atrial appendage. 4. Acute expected blood loss anemia. 5. Postoperative paroxysmal atrial fibrillation. 6. Postoperative exacerbation of right shoulder pain - arthritis vs tendinitis suspected. HISTORY OF PRESENT ILLNESS: 71 yo physically active male under echo surveillance for , seen by last study to have progressive stenosis into severe range and referred for AVR. Associated with mild AI, mild LVDD, and mild PHTN. No LVE, LVSD, significant LVH, presyncope, palpitations, chest pain, edema, or any perceivable functional limitations. Preop imaging remarkable for complex LAD lesion and admitted for elective AVR/CABG. PERTINENT PAST MEDICAL HISTORY: 1. PVD - s/p bilateral carotid endarterectomies. No hemodynamically significant stenosis by preop carotid ultrasound. 2. HTN 3. Hyperlipidemia 4. Type II Diabetes - diet controlled. Preop A1c of 6.1%. 5. Diabetic nephropathy - CKD2, baseline Cr 1.2, GFR 60-89. 6. Gout 7. Rt shoulder pain - intermittent x 1 yr, responsive to rest and NSAIDs. MEDICATIONS ON ADMISSION: Aspirin 325 mg daily; Quinapril 40 mg daily; Hydrochlorothiazide 25 mg daily; Amlodipine 10 mg daily; herbal supplement once daily ALLERGIES/SENSITIVITIES: Horse serum and tree nuts CONSULTANTS: Pulmonology/critical care (Ildefonso), Orthopedics (Carmine) PROCEDURES/IMAGIN/18 (Yady): Aortic Valve Replacement with a 21mm Lopez Magna bovine pericardial bioprosthesis. Coronary Artery Bypass Grafting x 1 (MENARD-LAD). Takedown left internal mammary artery. Prophylactic ligation of the left atrial appendage using a 35mm AtriClip. 10/26 (Mracel): Transthoracic echocardiogram. 10/29: Three view shoulder xray. ABBREVIATED HOSPITAL COURSE: Admitted on the day of surgery and taken to the O.R. where a 3mm LAD was bypassed with a 2mm briskly flowing mammary artery and a trileaflet, calcified aortic valve was replaced with a bioprosthesis. The entire procedure was well tolerated and there were no apparent complications. Easily weaned from CPB with preserved LV systolic fx and normal bioprosthetic function. Extubated in the O.R. and transferred to the ICU in hemodynamically stable condition without need for pressor support, blood, or blood products. Postop course remarkable for PAF and exacerbation of rt shoulder pain. A single episode of atrial fibrillation was successfully converted to sinus rhythm with amiodarone and escalating doses of beta reina. Antithrombotic prophylaxis with Eliquis initiated given elevated [id number] score of 4. Onset of localized rt shoulder ache actually 2 days before admission without unusual exertion or trauma recalled. No NSAIDs taken as degree of discomfort mild. Progressive shoulder pains and reduced range of motion present as of POD#3. High dose ASA avoided due to Eliquis and course of NSAID avoided due to CABG. Ortho consult obtained and suspicious for biceps or rotator cuff tendinitis. Xrays neg for bony lesion or impingement and pain addressed with tylenol, ultram and lidoderm patch. Outpatient followup arrangements made and discharged home with [facility]. DISCHARGE CLINICAL INFORMATION: Sternum grossly stable. Sternotomy CDI, sutured, +Dermabond. HR upper 60s. SBP 120s-130s. SpO2 81-88% RA, correcting to 92% on 1 Lpm O2. Wt 2.4 kg below admission at 74.8 kilos. WBC 9.16, Hgb 9.2, HCT 27.4, Plt 197, Na 140, K 3.8, Cr 1.0 DISCHARGE MEDICATIONS: As on admission with the following adjustments: Quinapril held. HCTZ held. Amlodipine held. Aspirin reduced to 81 mg daily while on Eliquis. NEW prescriptions: 1.Eliquis 2.5 mg BID x 4 weeks or as directed. 2.Amiodarone 200 mg daily x 4 weeks or as directed. 3.Metoprolol tartrate 50 mg BID or as directed. 4.Tramadol 50 mg q 4hrs prn incisional or shoulder discomfort. 5.Lidoderm 5% patch once daily prn shoulder discomfort. 6.Oxygen at 1 Lpm continuously or as directed by SpO2. FOLLOW UP APPOINTMENTS: 1.CV surgery: with Dr Conteh at [facility] on 11/06 at 10:30 am. 2.Cardiology: with Dr Beckham at [facility] within 4 weeks. Appointment to be established during surgical visit. 3.Orthopedics: with Dr Lou at [facility] within 2 weeks or as directed. FOLLOW UP TESTING: CXR prior to surgical appointment.
[2016-10-29] MEDS: ATORVASTATIN CALCIUM 10 MG TAB PO SCH (19:39)
[2016-10-29] MEDS ORDERED: SENNOSIDES/DOCUSATE SODIUM TAB PO PRN (21:00)
[2016-10-30] MEDS: HYDROCODONE/APAP 5/325 TAB PO PRN (04:18)
[2016-10-30] MEDS: PATCH REMOVAL 1 EA PATCH TD SCH (04:53)
[2016-10-30 07:45] VITALS: BP 140/73; PULSE 67; RESP 17; TEMP 97.7; O2SAT 93
--- NOTE | 2016-10-30 07:45 | SOAPPROG ---
SOAP Progress Note Assessment/Plan: Assessment: POD#6 AVR #21 Magna bioprosthesis, CABGx1 (MENARD-LAD), prophylactic ligation of JOHNATHAN with AtriClip Severe - s/p tissue AVR. Extubated in the OR. Hemodynamically stable early postop course. Nl postop echo. Tubes and wires out. Antithrombotic prophylaxis as per rhythm. Postoperative AF - Single episode converting to SR on Amio and escalating doses of metoprolol. Rate well controlled last 24hrs. Now intermittently bradycardic. Antithrombotic prophylaxis with low dose Eliquis for [id number] score of 4. Incidental single vessel CAD w preserved LV systolic fx - s/p CABG1 with arterial graft. Secondary prevention w baby ASA, statin, and BB as tolerated. Acute expected blood loss anemia - Stable. No blood products transfused. VTE prophylaxis as per rhythm. DM2 w CKD2 - Diet controlled w preop A1c of 6.1%. Baseline Cr 1.2. Both stable. No significant postop hyperglycemia. Resumption of ACEI as allowed by BP. Right shoulder pain - Pre-exisiting discomfort, worsening over weekend. Unable to abduct arm without pain. No numbness or dysesthesias. Use of NSAID contraindicated by CABG. Use of narcotics limited by somnolence. Adequate analgesia with ultram and lidoderm patch. Ortho eval sugg OA or tendinitis. Outpt f/u as per Dr Lou's recs. Plan: Ok for discharge. 10/30/16 07:40 Subjective: Doing ok. Rt knee now achey, "because i can't use my arms". Eager for home. Endorses acceptance of home services. Objective: Vital Signs Temp Pulse Resp BP Pulse Ox 36.6 C 66 18 132/64 H 92 10/30/16 04:00 10/30/16 04:00 10/30/16 04:00 10/30/16 04:00 10/30/16 04:00 Laboratory Results 10/29/16 05:55 10/29/16 05:55 10/29/16 10/30/16 10/31/16 05:59 05:59 05:59 Intake Total 1330 1200.4 Output Total 100 1200 Balance 1230 0.4 Cardioresp status stable. Physical Exam - Physical Exam General Appearance: alert, no apparent distress Respiratory: lungs clear (anteriorly) Cardiac/Chest: regular rate, rhythm, other (Sternum grossly stable. Sternotomy and CT sites ok.) Abdomen: non-tender, soft Skin: warm/dry Extremities: other (no visible edema; RUE tenderness unchanged.) ICD10 Worksheet Patient Problems: Problems Problem Status Diagnosed Atrial fibrillation with rapid ventricular response Acute Shoulder arthritis Acute S/P AVR (aortic valve replacement) Acute S/P CABG x 1 Acute Aortic valve stenosis with insufficiency Chronic CAD in [place] artery Chronic History of bilateral carotid endarterectomy Chronic PVD (pulmonary valve disease) Chronic
--- NOTE | 2016-10-30 07:57 | PDIAF ---
- Diagnosis Diagnosis: /incidental CAD s/p tissue AVR/CABG, rt shoulder arthritis off NSAID Code Status: Full Code - Medication Management Discharge Medications: Medications to Continue on Transfer Simvastatin [Zocor 20 mg] 20 mg PO DAILY18 10/22/14 [Last Taken 10/23/16] Herbals/Supplements -Info Only 1 ea PO DAILY #0 03/30/16 [Last Taken 10/23/16] Acetaminophen [Tylenol 325mg (*)] 325 - 650 mg PO Q4HRS PRN #0 tab 10/29/16 [ Last Taken Unknown] Amiodarone HCl [Pacerone (*)] 200 mg PO DAILY #30 tab 10/29/16 [Last Taken Unknown] Apixaban [Eliquis] 2.5 mg PO BID #60 tab 10/29/16 [Last Taken Unknown] Aspirin [Aspirin 81mg (*)] 81 mg PO DAILY #0 tab.chew 10/29/16 [Last Taken Unknown] Lidocaine 5% [Lidoderm 5% Patch (*)] 1 ea TD DAILY #14 patch 10/29/16 [Last Taken Unknown] Metoprolol Tartrate [Lopressor 50 mg (*)] 50 mg PO BID #60 tab 10/29/16 [Last Taken Unknown] traMADol [Ultram 50 mg (*)] 50 - 100 mg PO Q4HRS PRN #40 tab 10/29/16 [Last Taken Unknown] Discharge Medications: Refer to the Discharge Home Medication list for PRN reason. PICC Care - Routine: N/A - Orders Services needed: Registered Nurse (Please call [facility] (CV neurosurgery spine physician Corazon Marie) for overnight weight gain > 2 lbs, worsening low leg swelling, resting heart rate < 55 or > 120, SBP consistently < 90 or > 140, or suppl O2 req > 4lpm.), Physical Therapy (please confirm with orthopedist Dr Lou [phone] appropriate rt shoulder rehab) Oxygen: prn SpO2 < 90% +/- activity Diet Recommendation: ADA 2000 consistent carb Diet Texture: Regular Texture Diet Weigh Patient: daily Falcon: Not applicable Wound Care Instructions: -daily soap and water. -avoid ointments until all scabs off. -no underwater immersion until all scabs off Activity/Weight Bearing Restrictions: -sternal precautions x 3 more weeks. - RUE ROM per ortho Equipment: front wheel walker, portable O2 - Labs/Radiology Imaging Orders: CXR prior to surgical appointment - Follow Up Care Current Providers and Referrals: Chuy Polo MD [Primary Care Provider] - Roberto Conteh DO [Doctor of Osteopathy] - 11/06/16 10:30 am Moises Beckham MD [Medical Doctor] - Bernard Lou MD [Medical Doctor] - follow up in 10 days
[2016-10-30] MEDS: AMIODARONE HCL 200 MG TAB PO SCH (08:32)
[2016-10-30] MEDS: ASPIRIN 81 MG CHEWABLE TAB PO SCH (08:32)
[2016-10-30] MEDS: APIXABAN 2.5 MG TAB PO SCH (08:32)
[2016-10-30] MEDS: METOPROLOL TARTRATE 50 MG TAB PO SCH (08:33)
[2016-10-30] MEDS: LIDOCAINE 5% 1 EA PATCH TD SCH (08:34)
== END 2016-10-30 09:42 | disposition home health service (06) | DRG 220 ==
LOC: F3E 07:14 → F2N 08:45 → F2W 10-25 10:53
PROVIDERS: ADMIT Thoracic Surgery (Cardiothoracic Vascular Surgery); ATTEND Thoracic Surgery (Cardiothoracic Vascular Surgery)
PROC: 02RF08Z Replacement of Aortic Valve with Zooplastic Tissue, Open Approach (ICD-10-PCS; principal; 2016-10-24 08:28)
PROC: 5A1221Z Performance of Cardiac Output, Continuous (ICD-10-PCS; principal; 2016-10-24 08:28)
PROC: 02L70ZK Occlusion of Left Atrial Appendage, Open Approach (ICD-10-PCS; principal; 2016-10-24 08:28)
PROC: 02100Z9 Bypass Coronary Artery, One Artery from Left Internal Mammary, Open Approach (ICD-10-PCS; principal; 2016-10-24 08:28)
DX: I35.2 Nonrheumatic aortic (valve) stenosis with insufficiency (principal); D62 Acute posthemorrhagic anemia; I25.10 Atherosclerotic heart disease of native coronary artery without angina pectoris; I48.0 Paroxysmal atrial fibrillation; M25.511 Pain in right shoulder; I73.9 Peripheral vascular disease, unspecified; I12.9 Hypertensive chronic kidney disease with stage 1 through stage 4 chronic kidney disease, or unspecified chronic kidney disease; E78.5 Hyperlipidemia, unspecified; N18.2 Chronic kidney disease, stage 2 (mild); E11.22 Type 2 diabetes mellitus with diabetic chronic kidney disease; M10.9 Gout, unspecified; Z87.891 Personal history of nicotine dependence; I27.2 Other secondary pulmonary hypertension; I65.23 Occlusion and stenosis of bilateral carotid arteries; I25.84 Coronary atherosclerosis due to calcified coronary lesion
CPT/HCPCS: 82947-QW; 97110-GP; 97116-GP; 97161-GP; 97166-GO; 97530-GO; 97535-GO; G8978-GP-CJ; G8979-GP-CI; G8987-GO-CK; G8988-GO-CI; J0153; J0282; J0690; J1265; J1644; J1815; J1885; J2001; J2150; J2250; J2260; J2370; J2440; J2704; J2720; J2930; J3010; J7060; P9041

== ENCOUNTER → 2016-11-06 | Outpatient (CLI) | payer OTHER ==
--- NOTE | 2016-11-06 10:32 | DX ---
Chest, Two Views at 0949 hours History: Bilateral effusions, atelectasis, previous cardiac surgery. Comparison: October 25, 2016 Findings: Cardiac silhouette is mildly enlarged. Aortic valve replacement, atrial appendage clip, med yamilex sternotomy wires, mediastinal clips, and bilateral neck surgical clips again noted. Slight increa se in small left pleural effusion and left lower lobe atelectasis. Slight increase in small right ple ural effusion. No pneumothorax. Impression: 1. Slight increase in small bilateral pleural effusions and left lower lobe atelectasis. 2. No pneumothorax. 3. Postsurgical changes.
== END ==
LOC: FLAB 09:49
PROVIDERS: ATTEND Thoracic Surgery (Cardiothoracic Vascular Surgery)
DX: J90 Pleural effusion, not elsewhere classified (principal); J98.11 Atelectasis

== ENCOUNTER → 2016-11-13 | Outpatient (CLI) | payer OTHER ==
--- NOTE | 2016-11-13 11:58 | DX ---
Portable Chest, Single View - November 13, 2016, at 10:50 a.m. Indication: Cardiac valvular surgery 2 weeks ago. Shortness of breath. Comparison: Two-view chest dated November 06, 2016 Findings: Small left and trace right pleural effusions blunting the right and left costophrenic angle s are unchanged. Minimal left basilar atelectasis has improved. Fluid along the minor fissure has res olved. Heart size remains upper normal. Midline sternal wires, left atrial appendage clip, and prosth etic aortic heart valve are all unchanged. No pulmonary edema or cephalization. Impression: 1. Small left and trace right pleural effusion are unchanged. 2. Improving left basilar atelectasis. 3. Minimal cardiomegaly. No failure.
== END ==
LOC: FIMAGING 10:51
PROVIDERS: ATTEND Thoracic Surgery (Cardiothoracic Vascular Surgery)
DX: R06.02 Shortness of breath (principal); J90 Pleural effusion, not elsewhere classified; I51.7 Cardiomegaly; J98.11 Atelectasis; Z95.2 Presence of prosthetic heart valve; Z95.1 Presence of aortocoronary bypass graft; Z98.890 Other specified postprocedural states

== ENCOUNTER 2017-02-16 09:59 | Emergency (ER) | payer OTHER ==
[2017-02-16 10:08] VITALS: RESP 18
--- NOTE | 2017-02-16 10:28 | EDPHY ---
H & P Stated Complaint: pain/swelling l leg this week HPI/ROS: Chief complaint: Left leg pain History of present illness: This is a 72-year-old male who presents to the emergency department for left leg pain. Patient reports the onset of symptoms over the last few days. He states in addition to pain he has had associated swelling. Discomfort is around the knee but it does affect the lower extremity as well. He denies precipitating factors. He denies alleviating factors. He does state pain is worse with certain movements. He denies other associated signs or symptoms including no involvement of the right lower extremity, no cough, no shortness of breath, no chest pain, no fevers. - Personal History Current Tetanus/Diphtheria Vaccine: Unsure - Medical/Surgical History Hx Asthma: No Hx Chronic Respiratory Disease: No Hx Diabetes: Yes Hx Cardiac Disease: No Hx Renal Disease: No Hx Cirrhosis: No Hx Alcoholism: No Hx HIV/AIDS: No Hx Splenectomy or Spleen Trauma: No Other PMH: pmh- htn, hld, DM. psh- carotid endocardectomy - Social History Smoking Status: Former smoker - Physical Exam Exam: General Appearance: Alert, nontoxic. Eyes: Pupils equal and round no injection. Respiratory: Chest is nontender, lungs are clear to auscultation. Cardiovascular: regular rate and rhythm. DP and PT pulses 2+. Gastrointestinal: Abdomen is soft and nontender, no masses, bowel sounds normal. Musculoskeletal: Mild edema to posterior aspect of the left knee and left lower extremity. Patient is moving both extremities well. Skin: No significant erythema to the left lower extremity. No warmth or tenderness on palpation. Neurological: Alert and oriented x4. Strength and sensation intact and symmetrical including left lower extremity. Constitutional: Initial Vital Signs Temperature (C) 36.3 C 02/16/17 10:05 Heart Rate 67 02/16/17 10:05 Respiratory Rate 18 02/16/17 10:05 Blood Pressure 134/66 H 02/16/17 10:05 O2 Sat (%) 94 02/16/17 10:05 O2 Delivery Mode Room Air Allergies/Adverse Reactions: HORSE SERUM Allergy (Uncoded 11/20/09 11:41) nuts Allergy (Uncoded 10/22/14 09:53) Home Medications: Medication Instructions Recorded Simvastatin [Zocor 20 mg] 20 mg PO DAILY18 10/22/14 Herbals/Supplements -Info Only 1 ea PO DAILY #0 03/30/16 Acetaminophen [Tylenol 325mg (*)] 325 - 650 mg PO Q4HRS PRN #0 tab 10/29/16 Aspirin [Aspirin 81mg (*)] 81 mg PO DAILY #0 tab.chew 10/29/16 Metoprolol Tartrate [Lopressor 50 50 mg PO BID #60 tab 10/29/16 mg (*)] Amlodipine Besylate 02/16/17 Medical Decision Making - Diagnostics Imaging Results: Imaging Impressions Extremity Venous Study 02/16/17 10:16 Impression: No deep venous thrombosis left leg. Mildly complex Cooley cyst. Results called and discussed with PAUL Milton at 02/16/2017 11:40. Imaging: Discussed imaging studies w/ sports management intern Radiologist ED Course/Re-evaluation: Patient is discussed with my secondary supervising physician Dr. Terry Baer. Patient presents to the emergency department for a left lower extremity pain. The extremity is neurovascularly intact. He has good movement. Ultrasound is negative for DVT. Cooley cyst is seen. I do believe history and physical exam is likely consistent with a Cooley's cyst. My suspicion for other serious pathology is low. Patient will be discharged home. Home care is discussed. He is asked to follow up with his primary care doctor or an orthopedic doctor for recheck. Return precautions are given. Patient voiced understanding and agreement with plan. Differential Diagnosis: Included but not limited to thromboembolic disease, Cooley cyst, cellulitis, muscle strain, unlikely arterial occlusion or necrotizing fasciitis Departure - Departure Disposition: Home, Routine, Self-Care Clinical Impression: Left leg pain Bakers cyst Qualifiers: Laterality: left Qualified Code(s): M71.22 - Synovial cyst of popliteal space [ Cooley], left knee Condition: Good Instructions: Bakers Cyst (ED), Leg Pain (ED) Additional Instructions: Follow-up with your primary care doctor and orthopedic doctor for recheck If symptoms worsen or new symptoms develop return to the emergency room for recheck Referrals: Chuy Polo MD [Primary Care Provider] - As per Instructions Raciel Perry MD [Medical Doctor] - As per Instructions
[2017-02-16 12:13] VITALS: BP 154/80; PULSE 80; TEMP 97.5; O2SAT 91
== END 2017-02-16 12:13 | disposition home or self-care (01) ==
DX: M79.605 Pain in left leg (principal); M71.22 Synovial cyst of popliteal space [Baker], left knee; I10 Essential (primary) hypertension; E11.9 Type 2 diabetes mellitus without complications; Z79.82 Long term (current) use of aspirin; Z87.891 Personal history of nicotine dependence